=== PATIENT | female | born 1995 | race Caucasian/White ===

== ENCOUNTER → 2025-03-01 | Outpatient (CLI) | payer SELFPAY ==
--- NOTE | 2025-03-01 14:58 | BD_ITS ---
EXAM: DEXA BONE DENSITY STUDY 03/01/2025 REASON FOR EXAM: F,30 y/o TECHNIQUE: Procedure Code: BDDBD Modality: DX Procedure: DEXA BONE DENSITY STUDY COMPARISON: None FINDINGS: BMD and Z-SCORES Lumbar spine: 0.901 g/cm2, Z-Score -1.3 L1 through L4 Left femoral neck: 0.833 g/cm2, Z-Score -0.1 Left total hip: 0.875 g/cm2, Z-Score -0.5 Right femoral neck: 0.894 g/cm2, Z-Score 0.4 Right total hip: 0.893 g/cm2, Z-Score -0.4 FRAX: The 10 year fracture risk index for major osteoporotic fracture is 1.5% and for hip fracture is less than 0.1%. BD/Dexa Bone Density Study IMPRESSION: Patient demonstrates osteopenia. Recommend follow-up, if clinically warranted. Reading Location: [id number]
== END | disposition home or self-care (01) ==
PROVIDERS: PCP Family Medicine; Referring Provider Family Medicine; Visit Provider Family Medicine
DX: Z13.820 Encounter for screening for osteoporosis (principal); Z82.62 Family history of osteoporosis
CPT/HCPCS: 77080